=== PATIENT | female | born 1970 | race Hispanic/Latino ===

== ENCOUNTER 2018-11-25 12:31 | Observation (INO) | payer BC ==
[2018-11-25] MEDS ORDERED: NA CHLORIDE 0.9% 1,000 ML ONE ×2 (13:19→15:50)
[2018-11-25] MEDS ORDERED: FLEET ENEMA ADULT PR ONE (13:47)
[2018-11-25 14:36] LABS: Albumin 4.1 g/dL (3.4-5.0); Bilirubin Direct 0.2 mg/dL (0-0.2); Bilirubin Total 0.7 mg/dL (0.2-1.0); Potassium 3.3 mmol/L (3.5-5.1); Protein, Total 7.5 g/dL (6.4-8.2)
[2018-11-25 14:46] LABS: Absolute Lymphocytes (CBC) 1.4 K/uL (0.7-4.9); Absolute Monocytes 0.8 K/uL (0.1-1.3); Absolute Neutrophil 5.7 K/uL (1.8-8.0); Basophils % 0.4 % (0-1.3); Eosinophils % 0.5 % (0-4.4); Hematocrit 38.8 % (36.0-45.0); Lymphocytes % 17.1 % (15.3-44.8); MPV 8.2 fL (7.6-11.3); Monocytes % 10.1 % (3.3-12.3); RBC Red Blood Cell Count 4.41 M/uL (3.86-4.86)
[2018-11-25] MEDS ORDERED: KCL 20 MEQ/100 mL IVPB 20 MEQ/100 ML BAG IV ONE (15:46)
--- NOTE | 2018-11-25 16:31 | RAD REPORT ---
EXAM DESCRIPTION: CT - Abdomen Pelvis W Contrast - 11/25/2018 4:16 pm CLINICAL HISTORY: Abdominal pain, recent history of gastric sleeve procedure COMPARISON: None. TECHNIQUE: Biphasic, helical CT imaging of the abdomen and pelvis was performed following 100 ml non -ionic IV contrast. Oral contrast was given. All CT scans are performed using dose optimization technique as appropriate and may include automated exposure control or mA/KV adjustment according to patient size. FINDINGS: No suspicious findings in the lung bases. The liver, spleen, and pancreas show no suspicious findings. Gallbladder and biliary tree are also wi thout suspicious finding. Symmetric renal function is seen with no hydronephrosis or suspicious renal mass. No pyelonephritis o r acute parenchymal process. No bladder abnormalities. No adrenal abnormalities. Uterus is absent. No ovarian suspicious finding. Gastric sleeve surgical changes are noted with no unexpected finding. No small bowel abnormality. No appendicitis. Patient has a large amount of stool dilating the rectum. Otherwise, patient has limited content within the colon. Oral contrast has reached the rectum. No free air, free fluid or inflammatory stranding. No mass or bulky lymphadenopathy. No hernia findi ngs. No suspicious bony findings. IMPRESSION: Patient has a large stool volume dilating the rectum with colon otherwise showing little retained bowel content. No abnormalities at the gastric sleeve surgical site.
--- NOTE | 2018-11-25 17:05 | ER ---
Nurse's Notes [facility] Name: Kira Khan Age: 48 yrs Sex: Female : 1970 Arrival Date: 11/25/2018 Time: 12:34 Bed 28 Private MD: Eugenio Berry Diagnosis: Fecal impaction;Dehydration Presentation: 11/25 12:52 Presenting complaint: Patient states: constipation x 2 weeks. Pt reports that she ss recently had a gastric sleeve placed 3 weeks ago, and has not had a BM in 2 weeks. Pt has tried enemas and stool softeners without results. Pt now c/o fatigue and nausea. Transition of care: patient was not received from another setting of care. Onset of symptoms was November 11, 2018. Risk Assessment: Do you want to hurt yourself or someone else? Patient reports no desire to harm self or others. Initial Sepsis Screen: Does the patient meet any 2 criteria? No. Patient's initial sepsis screen is negative. Does the patient have a suspected source of infection? No. Patient's initial sepsis screen is negative. Care prior to arrival: None. 12:52 Method Of Arrival: Ambulatory ss 12:52 Acuity: EVELYN 3 ss ARCHITECTURAL INTERN: 19:46 LMP N/A - Hysterectomy ca1 Historical: - Allergies: 12:55 No Known Allergies; ss - PMHx: 12:55 Hypothyroidism; ss - PSHx: 12:55 gastric sleeve; c section; partial hysterectomy; ss - Immunization history:: Adult Immunizations up to date. - Social history:: Smoking status: Patient/guardian denies using tobacco. - Ebola Screening: : Patient denies exposure to infectious person Patient denies travel to an Ebola-affected area in the 21 days before illness onset. - Family history:: not pertinent. - Hospitalizations: : Patient was recently seen at. Screenin:40 Abuse screen: Denies threats or abuse. Denies injuries from another. Nutritional hb screening: No deficits noted. Tuberculosis screening: No symptoms or risk factors identified. Fall Risk None identified. Assessment: 13:00 General: Appears in no apparent distress. uncomfortable, Behavior is cooperative, hb anxious. Pain: Pain currently is 9 out of 10 on a pain scale. Neuro: Level of Consciousness is awake, alert, obeys commands, Oriented to person, place, time, situation. Cardiovascular: Capillary refill < 3 seconds Patient's skin is warm and dry. Respiratory: Airway is patent Respiratory effort is even, unlabored, Breath sounds are clear bilaterally. GI: Abdomen is non-distended, Bowel sounds present X 4 quads. Abd is soft and non tender X 4 quads. : No signs and/or symptoms were reported regarding the genitourinary system. EENT: No signs and/or symptoms were reported regarding the EENT system. Derm: Skin is intact, with poor turgor Skin is dry, Skin is pale. Musculoskeletal: No signs and/or symptoms reported regarding the musculoskeletal system. 13:30 Reassessment: Unable to establish PIV access, Dr. Figueroa aware. hb 14:04 Reassessment: Charge Nurse Milly CLARK at bedside for PIV attempt. hb 14:15 Reassessment: Patient appears in no apparent distress at this time. Patient and/or hb family updated on plan of care and expected duration. Pain level reassessed. Patient is alert, oriented x 3, equal unlabored respirations, skin warm/dry/pink. 15:00 Reassessment: Patient appears in no apparent distress at this time. Patient and/or hb family updated on plan of care and expected duration. Pain level reassessed. Patient is alert, oriented x 3, equal unlabored respirations, skin warm/dry/pink. 15:11 Reassessment: finished drinking PO contrast, CT notified. em 16:00 Reassessment: Patient appears in no apparent distress at this time. No changes from hb previously documented assessment. Patient and/or family updated on plan of care and expected duration. Pain level reassessed. Patient is alert, oriented x 3, equal unlabored respirations, skin warm/dry/pink. 17:02 Reassessment: Patient appears in no apparent distress at this time. No changes from hb previously documented assessment. Patient and/or family updated on plan of care and expected duration. Pain level reassessed. 18:00 Reassessment: Patient appears in no apparent distress at this time. No changes from hb previously documented assessment. Patient and/or family updated on plan of care and expected duration. Pain level reassessed. Patient is alert, oriented x 3, equal unlabored respirations, skin warm/dry/pink. Admission ordered, awaiting room assignment at this time. Vital Signs: 12:55 BP 110 / 88; Pulse 83; Resp 15; Temp 97.6(TE); Pulse Ox 99% on R/A; Weight 100.7 kg; ss Height 5 ft. 8 in. (172.72 cm); Pain 9/10; 13:45 BP 116 / 80; Pulse 80; Resp 16; Pulse Ox 100% on R/A; hb 15:15 BP 118 / 78; Pulse 76; Resp 16; Pulse Ox 100% on R/A; Pain 6/10; hb 17:03 BP 124 / 74; Pulse 75; Resp 16; Pulse Ox 100% on R/A; hb 18:00 BP 96 / 62; Pulse 68; Resp 16; Pulse Ox 99% on R/A; hb 12:55 Body Mass Index 33.75 (100.70 kg, 172.72 cm) ED Course: 12:34 Patient arrived in ED. mr 12:35 Eugenio Berry MD is Private Physician. mr 12:54 Triage completed. ss 12:55 Arm band placed on right wrist. ss 13:04 Joseph Figueroa MD is Attending Physician. rn 13:05 Neeru Dey RN is Primary Nurse. hb 13:40 Patient has correct armband on for positive identification. Placed in gown. Bed in low hb position. Call light in reach. Side rails up X 1. 14:10 Initial lab(s) drawn, by me, sent to lab. Inserted saline lock: 20 gauge in left aa5 forearm, using aseptic technique. Blood collected. 16:15 CT completed. Patient tolerated procedure well. Patient moved to CT. Patient moved back jg6 from CT. 16:16 CT Abd/Pelvis - W/Contrast In Process Unspecified. EDMS 17:03 Eugenio Berry MD is Hospitalizing Provider. rn 19:47 No provider procedures requiring assistance completed. Patient admitted, IV remains in ca1 place. Administered Medications: 14:16 Drug: NS 0.9% 1000 ml Route: IV; Rate: 1000 ml; Site: left forearm; hb 19:00 Follow up: IV Status: Completed infusion ca1 14:40 Drug: Fleet Enema 133 ml Route: NH; hb 19:46 Follow up: Response: No adverse reaction ca1 15:20 Drug: Potassium Chloride 20 mEq Route: IV; Rate: calculated rate; Site: left forearm; hb 19:46 Follow up: IV Status: Infusion continued upon admission ca1 Outcome: 17:03 Decision to Hospitalize by Provider. rn 19:47 Admitted to Tele accompanied by tech, family with patient, via stretcher, room 428, ca1 with chart, Report called to Suma Hyman RN 19:48 Condition: stable ca1 19:48 Instructed on the need for admit. 20:05 Patient left the ED. ca1 Signatures: Dispatcher [employer] EDWI Mehreen Obando, Karlos, SUPERVISOR [employer]PER[employer] em Joseph Figueroa MD MD rn Calderon, Audri RN RN aa5 Anayeli Gresham RN RN ss Baxter, Heather, RN RN Maricel Diallo6 Brigid Ling RN RN ca1 Corrections: (The following items were deleted from the chart) 13:20 13:17 Hospitalizations: No recent hospitalization is reported. rn rn 14:20 13:00 GI: Abdomen is distended, Bowel sounds present X 4 quads. Abd is soft X 4 quads hb Abdomen is tender to palpation X 4 quads. hb
--- NOTE | 2018-11-25 17:05 | EDPHYS ---
Physician Documentation [facility] Name: Kira Khan Age: 48 yrs Sex: Female : 1970 Arrival Date: 11/25/2018 Time: 12:34 Bed 28 Private MD: Eugenio Berry ED Physician Joseph Figueroa HPI: 11/25 13:17 This 48 yrs old Female presents to ER via Ambulatory with complaints of rn Constipation. 13:17 The patient presents with abdominal pain in the lower abdomen. Onset: The rn symptoms/episode began/occurred 2 week(s) ago. The symptoms do not radiate. Associated signs and symptoms: Pertinent positives: constipation, nausea, Pertinent negatives: fever, vomiting. The symptoms are described as achy, crampy. Modifying factors: The symptoms are alleviated by nothing, the symptoms are aggravated by touching the area. Severity of pain: At its worst the pain was mild in the emergency department the pain is unchanged. The patient has not experienced similar symptoms in the past. Reports had gastric sleeve done 3 weeks ago, in [place], had 1 bowel movement since then, now reports constipation and nausea, no BM for 2 weeks, is only passing small amounts of liquid stool. + rectal pressure and pain, enemas not working, neither is miralax. . CLINICAL DOCUMENTATION MANAGER: 19:46 LMP N/A - Hysterectomy ca1 Historical: - Allergies: 12:55 No Known Allergies; ss - PMHx: 12:55 Hypothyroidism; ss - PSHx: 12:55 gastric sleeve; c section; partial hysterectomy; ss - Immunization history:: Adult Immunizations up to date. - Social history:: Smoking status: Patient/guardian denies using tobacco. - Ebola Screening: : Patient denies exposure to infectious person Patient denies travel to an Ebola-affected area in the 21 days before illness onset. - Family history:: not pertinent. - Hospitalizations: : Patient was recently seen at. ROS: 13:17 Constitutional: Negative for fever, chills, and weight loss, Eyes: Negative for injury, rn pain, redness, and discharge, Neck: Negative for injury, pain, and swelling, Cardiovascular: Negative for chest pain, palpitations, and edema, Respiratory: Negative for shortness of breath, cough, wheezing, and pleuritic chest pain, Abdomen/GI: Negative for vomiting, diarrhea MS/Extremity: Negative for injury and deformity, Skin: Negative for injury, rash, and discoloration, Neuro: + generalized weakness Exam: 13:17 Constitutional: This is a well developed, well nourished patient who is awake, alert, rn and in no acute distress. Head/Face: Normocephalic, atraumatic. ENT: dry MM Respiratory: Speaking full sentences, no increased work of breathing. Abdomen/GI: soft, non-tender, non-distended, no peritoneal signs. Skin: Warm, dry MS/ Extremity: Pulses equal, no cyanosis. Neuro: Awake and alert, GCS 15, oriented to person, place, time, and situation. Cranial nerves II-XII grossly intact. Motor strength 5/5 in all extremities. Sensory grossly intact. Cerebellar exam normal. Normal gait. Vital Signs: 12:55 BP 110 / 88; Pulse 83; Resp 15; Temp 97.6(TE); Pulse Ox 99% on R/A; Weight 100.7 kg; ss Height 5 ft. 8 in. (172.72 cm); Pain 9/10; 13:45 BP 116 / 80; Pulse 80; Resp 16; Pulse Ox 100% on R/A; hb 15:15 BP 118 / 78; Pulse 76; Resp 16; Pulse Ox 100% on R/A; Pain 6/10; hb 17:03 BP 124 / 74; Pulse 75; Resp 16; Pulse Ox 100% on R/A; hb 18:00 BP 96 / 62; Pulse 68; Resp 16; Pulse Ox 99% on R/A; hb 12:55 Body Mass Index 33.75 (100.70 kg, 172.72 cm) MDM: 13:04 Patient medically screened. rn 17:00 Differential diagnosis: bowel obstruction, rectal impaction. Data reviewed: vital rn signs, nurses notes, lab test result(s), radiologic studies, CT scan, and as a result, I will admit patient. Counseling: I had a detailed discussion with the patient and/or guardian regarding: the historical points, exam findings, and any diagnostic results supporting the discharge/admit diagnosis, lab results, radiology results, the need for further work-up and treatment in the hospital. Response to treatment: There is no appreciated change of the patient's symptoms at this time. ED course: Small amount of liquid stool, no resistance with enema, will admit to Dr. Berry for IV hydration and soap suds enemas. . 11/25 13:05 Order name: Basic Metabolic Panel; Complete Time: 14:50 rn 11/25 13:05 Order name: CBC with Diff; Complete Time: 15:09 rn 11/25 13:05 Order name: Hepatic Function; Complete Time: 14:50 rn 11/25 13:05 Order name: Lipase; Complete Time: 14:50 rn 11/25 13:05 Order name: CT Abd/Pelvis - W/Contrast; Complete Time: 16:52 rn 11/25 13:05 Order name: IV Saline Lock; Complete Time: 14:16 rn 11/25 13:05 Order name: Labs collected and sent; Complete Time: 14:16 rn Administered Medications: 14:16 Drug: NS 0.9% 1000 ml Route: IV; Rate: 1000 ml; Site: left forearm; hb 19:00 Follow up: IV Status: Completed infusion ca1 14:40 Drug: Fleet Enema 133 ml Route: NH; hb 19:46 Follow up: Response: No adverse reaction ca1 15:20 Drug: Potassium Chloride 20 mEq Route: IV; Rate: calculated rate; Site: left forearm; hb 19:46 Follow up: IV Status: Infusion continued upon admission ca1 Disposition: 11/25/18 17:03 Hospitalization ordered by Eugenio Berry for Observation. Preliminary diagnosis are Fecal impaction, Dehydration. - Bed requested for Telemetry/MedSurg (observation). - Status is Observation. ca1 - Condition is Stable. - Problem is new. - Symptoms are unchanged. UTI on Admission? No Signatures: Dispatcher [employer] EDMS Eden Dawn Roman, MD MD rn Smirch, Shelby, RN RN Neeru Dey RN RN Charlotte Riojas RN RN df Brigid Ling RN RN ca1 Corrections: (The following items were deleted from the chart) 13:20 13:17 Hospitalizations: No recent hospitalization is reported. rn rn 18:19 17:03 Hospitalization Ordered by Eugenio Berry MD for Observation. Preliminary df diagnosis is Fecal impaction; Dehydration. Bed requested for Telemetry/MedSurg (observation). Status is Observation. Condition is Stable. Problem is new. Symptoms are unchanged. UTI on Admission? No. rn 19:02 18:19 11/25/2018 17:03 Hospitalization Ordered by Eugenio Berry MD for Observation. bd Preliminary diagnosis is Fecal impaction; Dehydration. Bed requested for Telemetry/MedSurg (observation). Status is Observation. Condition is Stable. Problem is new. Symptoms are unchanged. UTI on Admission? No. df 20:05 19:02 11/25/2018 17:03 Hospitalization Ordered by Eugenio Berry MD for Observation. ca1 Preliminary diagnosis is Fecal impaction; Dehydration. Bed requested for Telemetry/MedSurg (observation). Status is Observation. Condition is Stable. Problem is new. Symptoms are unchanged. UTI on Admission? No. bd
[2018-11-25] MEDS: NA CHLORIDE 0.9% 1,000 ML IV SCH (20:45)
[2018-11-25 20:46] VITALS: BMI 33.4
[2018-11-25] MEDS ORDERED: TRAMADOL HCL 50 MG TAB PO PRN (23:13)
[2018-11-26] MEDS: ONDANSETRON 4 MG/2 ML VIAL IV PRN ×4 (03:00→22:33)
[2018-11-26 05:19] LABS: Absolute Lymphocytes (CBC) 1.3 K/uL (0.7-4.9); Absolute Monocytes 0.9 K/uL (0.1-1.3); Absolute Neutrophil 5.3 K/uL (1.8-8.0); Basophils % 0.4 % (0-1.3); Eosinophils % 1.3 % (0-4.4); Hematocrit 33.1 % (36.0-45.0); MPV 8.1 fL (7.6-11.3); Monocytes % 12.2 % (3.3-12.3); RBC Red Blood Cell Count 3.69 M/uL (3.86-4.86)
[2018-11-26 05:35] LABS: BUN Blood Urea Nitrogen 4 mg/dL (7-18); Bicarbonate 19 mmol/L (21-32); Glucose Level 107 mg/dL (74-106); Potassium 3.1 mmol/L (3.5-5.1); Sodium Level 139 mmol/L (136-145)
[2018-11-26] MEDS: NA CHLORIDE 0.9% 1,000 ML IV SCH ×3 (06:44→22:34)
[2018-11-26 11:42] VITALS: O2SAT 96
[2018-11-27 00:04] LABS: Urine Appearance CLEAR; Urine Bilirubin NEGATIVE (NEG); Urine Blood NEGATIVE (NEG); Urine Color YELLOW; Urine Glucose NEGATIVE (NEG); Urine Protein NEGATIVE (NEG); Urine Specific Gravity 1.015 (1.005-1.030); Urine Urobilinogen 0.2 mg/dL (0.2-1.0); Urine pH 5.5 (5.0-7.0)
[2018-11-27 00:10] LABS: Urine Microscopic Reflex NO UMIC
[2018-11-27] MEDS ORDERED: POTASSIUM CL SA 10 MEQ TAB PO ONE (08:56)
[2018-11-27 10:06] LABS: BUN Blood Urea Nitrogen 2 mg/dL (7-18); Bicarbonate 24 mmol/L (21-32); Glucose Level 97 mg/dL (74-106); Potassium 3.1 mmol/L (3.5-5.1); Sodium Level 140 mmol/L (136-145)
--- NOTE | 2018-11-27 10:31 | RAD REPORT ---
EXAM DESCRIPTION: RAD - Abdomen W Erect - 11/27/2018 10:22 am CLINICAL HISTORY: Constipation, abdominal pain, recent gastric sleeve surgery COMPARISON: CT study November 25 TECHNIQUE: Supine and upright views of the abdomen were obtained. FINDINGS: Bowel gas pattern is nonspecific. There is no obstruction, free air or pneumatosis. The la rge stool volume dilating the rectum on the CT study is not evident on plain film. This large rectal stool volume may have passed. Elsewhere there is no abnormal stool volume in the colon. Colon is most ly decompressed. Multiple phleboliths are seen in the pelvis. There are 4 round radiopaque densities in the midline up per abdomen. These are likely some form of ingested food or medication within the distal stomach or p roximal most small bowel. These are not regarded as significant. No acute bone finding. IMPRESSION: No constipation pattern or obstruction. There is little stool volume in the colon. The large stool volume dilating the rectum on the CT study is no longer evident and presumed to have passed.
[2018-11-27] MEDS: ONDANSETRON 4 MG/2 ML VIAL IV PRN (10:35)
--- NOTE | 2018-11-27 12:34 | PN ---
Date of Progress Note: 11/26/2018 The patient has passed a little bit of stool, however, is still quite uncomfortable and feels a lot o f pressure, slightly tender in the lower abdomen, so continue with the enema regimen as I doubt that she is cleared enough to avoid further medication in the form of enemas and stool softeners. Telepho ne conversation was had with the clinic, at which she had her sleeve and they suggested various combi nations of preparations to loosen stool. HR/MODL Voice ID: [id number] Report ID: [id number]
--- NOTE | 2018-11-27 12:53 | PN ---
Entrance Complaint: Abdominal pain and constipation. History Of Present Illness: The patient underwent successful sleeve surgery approximately 2 and half weeks ago. She had a bowel movement since that time; however, she became increasingly constipated de spite various stool softener and dietary preparations. She presented to the emergency room complaini ng of lower abdominal pain and KUB and CT scan were done that showed marked amount of stool retention just above the rectal area, probable impaction. She was therefore admitted for further care. Past Medical History: Other than the weight problem, the patient has been in good general health. S he has had some thyroid issues. Social History: Nonsmoker, nondrinker. Family History: Noncontributory. Physical Examination: General: The patient is a moderately obese, middle-aged female, in moderate distress with stable vit al signs. Head and Neck: Normocephalic. Pupils equal react to light and accommodation. Fundi negative. Trachea midline. Thyroid not palpable. ENT: Negative. Chest: Clear to P and A. Cardiovascular: PMI in midclavicular line. Heart: Sounds normal. Peripheral pulses present and equal bilaterally. Abdomen: Uncomfortable to deep palpation in the lower abdominal area, most marked on the left lower q uadrant. No guarding, rebound, or rigidity. Bowel sounds hypoactive. Extremities: Moderately dehydrated. Good tone and movement bilaterally. Reflexes are physiologic. Rectal: As mentioned stools beyond digital evaluation at this time. Pelvic: Deferred. Impression: Obstipation, constipation secondary to recent sleeve procedure. Dehydration, moderate. Plan: The patient will be admitted. Placed on IV fluids. Enemas will be utilize in an attempt to di slodge the impaction.? HR/MODL Voice ID: [id number] Report ID: [id number]
[2018-11-27] MEDS: NA CHLORIDE 0.9% 1,000 ML IV SCH (14:45)
[2018-11-27 16:49] VITALS: BP 105/67; TEMP 98
--- NOTE | 2018-11-28 00:14 | PN ---
Date of Progress Note: 11/27/2018 The patient has now cleared her impaction and KUB was within normal limits. Feels a lot better, javane rating a diet. She can be discharged to continue on prophylactic stool softeners and dietary control as appropriate for 2-1/2 weeks post sleeve. She will be followed up in 1 week in my office. HR/MODL Voice ID: [id number] Report ID: [id number]
== END 2018-11-27 20:45 | disposition home or self-care (01) ==
LOC: ER 12:31 → ERHOLD 17:12 → 4TH 19:53
PROVIDERS: ADMIT Family Medicine; ATTEND Family Medicine
DX: K91.30 Postprocedural intestinal obstruction, unspecified as to partial versus complete (principal); K95.89 Other complications of other bariatric procedure; E86.0 Dehydration; E66.01 Morbid (severe) obesity due to excess calories; Z68.33 Body mass index [BMI] 33.0-33.9, adult
CPT/HCPCS: 36415; 74019; 74177; 80048; 80076; 81003; 83690; 84132; 85025; 94760; 96361; 96365; 96366; 99285; G0378; J2405; J7030; Q9967